=== PATIENT | female | born 1960 | race Caucasian/White ===

== ENCOUNTER 2017-09-08 09:37 | Outpatient (CLI) | payer MEDICARE, MEDICAID ==
[~2017-09-08 09:37] MED LIST: DIO160T PO; GABA300S PO; MULT-1085 PO
== END 2017-09-08 23:59 | disposition home or self-care (01) ==
LOC: LAB 09:37
PROVIDERS: ATTEND Surgery
DX: Z12.73 Encounter for screening for malignant neoplasm of ovary (principal); I10 Essential (primary) hypertension; Z80.41 Family history of malignant neoplasm of ovary
CPT/HCPCS: 36415

== ENCOUNTER 2020-05-28 11:16 | Emergency (ER) | payer MEDICARE, OTHER ==
[~2020-05-28] VITALS: Ht 170.2 cm; Wt 63.0 kg
--- NOTE | 2020-05-28 11:56 | NUR ---
pt is 59yo female c/o reaction to plaxil, started on Tuesday for anxiety, sx started Tuesday--pt c/o "feels like I want to jump out of my skin", decreased appetite, insomnia. Pt has been evaluated by Gita LAWRENCE
[2020-05-28] MEDS ORDERED: ALPRAZolam 0.25mg tablet PO ONE (12:10)
[2020-05-28 14:46] LABS: BASOPHILS % (AUTO) 0.5 % (0-1); EOSINOPHILS # (AUTO) 0.1 X10'3 (0-0.9); EOSINOPHILS % (AUTO) 0.6 % (0-6); HEMATOCRIT 45.1 % (35.0-45.0); HEMOGLOBIN 14.8 g/dl (12.0-16.0); LYMPHOCYTES # (AUTO) 1.9 X10'3 (1.1-4.8); LYMPHOCYTES % (AUTO) 18.9 % (21-51); MEAN CORPUSCULAR HEMOGLOBIN 30.1 PG (27.0-31.0); MEAN CORPUSCULAR HGB CONC 32.8 g/dL (33.0-36.5); MEAN CORPUSCULAR VOLUME 91.9 FL (78-98); MEAN PLATELET VOLUME 10.3 FL (7.4-10.4); MONOCYTES # (AUTO) 0.8 X10'3 (0-0.9); MONOCYTES % (AUTO) 8.5 % (2-12); NEUTROPHILS # (AUTO) 7.1 X10'3 (1.8-7.7); NEUTROPHILS % (AUTO) 71.5 % (42-75); PLATELET COUNT 271 X10'3 (140-440); RED BLOOD COUNT 4.91 X10'6 (4.20-5.60); RED CELL DISTRIBUTION WIDTH 14.8 % (11.5-14.5); WHITE BLOOD COUNT 9.9 X10'3 (4.5-11.0)
[2020-05-28 15:06] LABS: ALANINE AMINOTRANSFERASE 22 U/L (12-78); ALKALINE PHOSPHATASE 56 IU/L (46-116); ANION GAP 12 (8-16); ASPARTATE AMINO TRANSFERASE 18 U/L (10-37); BILIRUBIN,TOTAL 0.5 MG/DL (0.1-1.0); BLOOD UREA NITROGEN 21 MG/DL (7-18); BUN/CREATININE RATIO 25.9 (6.6-38.0); CALCIUM 9.9 MG/DL (8.5-10.1); CHLORIDE 102 MMOL/L (99-107); CREATININE 0.81 MG/DL (0.40-0.90); GLUCOSE 87 MG/DL (70-104); SODIUM 138 MMOL/L (135-145); TOTAL CARBON DIOXIDE 23.9 MMOL/L (24-32); TOTAL PROTEIN 8.2 G/DL (6.4-8.2); eGFR 72 ML/MIN
[2020-05-28 15:07] LABS: ETHANOL < 0.010 GM/DL (0.0-0.010)
[2020-05-28 15:18] LABS: URINE HCG NEGATIVE (NEG)
--- NOTE | 2020-05-28 15:23 | NUR ---
patient on bed awake.We will monitor,.
[2020-05-28 15:29] LABS: URINE AMPHETAMINE SCREEN NEGATIVE (Neg); URINE BARBITUATE SCREEN NEGATIVE (Neg); URINE BENZODIAZEPINES SCREEN POSITIVE (Neg); URINE CANNABINOID SCREEN POSITIVE (Neg); URINE COCAINE SCREEN NEGATIVE (Neg); URINE METHADONE SCREEN NEGATIVE (Neg); URINE OPIATE SCREEN POSITIVE (Neg); URINE PHENCYCLIDINE SCREEN NEGATIVE (Neg)
[2020-05-28] MEDS ORDERED: LORazepam 0.5 MG tablet PO ONE (15:35)
--- NOTE | 2020-05-28 16:08 | NUR ---
talked to pt's to give him an update on wifes care.
[2020-05-28] MEDS ORDERED: HYDR-4353 PO (16:34)
[2020-05-28] MEDS ORDERED: LOSA100T3 PO (16:34)
[2020-05-28] MEDS ORDERED: ESCI10TA PO (16:34)
[2020-05-28] MEDS ORDERED: PARO10TA85 PO (16:34)
--- NOTE | 2020-05-28 17:15 | NUR ---
PT IS RESTING IN HER ROOM. LAYING ON HER LEFT SIDE
[2020-05-28] MEDS ORDERED: LORazepam 1 MG tablet PO PRN (17:45)
--- NOTE | 2020-05-28 18:40 | NUR ---
[facility] at bedside to evaluate client.
--- NOTE | 2020-05-28 19:00 | NUR ---
Client resting in bed. No evidence of distress.
--- NOTE | 2020-05-28 20:00 | NUR ---
Client asked about medications for sleep. Awake and alert. Resp even.
[2020-05-28] MEDS ORDERED: traZODone 50mg tablet PO PRN (20:25)
[2020-05-28] MEDS ORDERED: LORazepam 1 MG tablet PO ONE (20:25)
[2020-05-28] MEDS: HYDROcodone/acetaminophen 10/325mg tab PO SCH (20:39)
--- NOTE | 2020-05-28 21:00 | NUR ---
Spoke with Dr. Amato regarding medications. 1.5 mg Ativan Tab PO and 50 mg Trazodone Tab PO ordered. Client accepted 10 mg [place] Tab PO and the Ativan. Client requested ear plugs as another client was being loud and disrupted. Client requested this individual lower their voice.
--- NOTE | 2020-05-28 22:00 | NUR ---
Client given 50 mg Trazodone Tab PO for sleep. Stated, "I haven't slept in three days." Client given Trazodone. Cooperative. Mood and affect are anxious.
--- NOTE | 2020-05-29 00:35 | NUR ---
Resting in bed, eye's closed. Resp even.
--- NOTE | 2020-05-29 02:15 | NUR ---
Resting on her back, eye's closed. Resp even.
--- NOTE | 2020-05-29 03:59 | NUR ---
Resting eye's closed. Resp even.
--- NOTE | 2020-05-29 05:52 | NUR ---
Client is awake, vital signs are being taken by ANAI Norton. Client is cooperative.
[2020-05-29 06:00] VITALS: BP_DIAS 69
--- NOTE | 2020-05-29 06:30 | NUR ---
Patient sleeping on right side. No distress observed. Continue to monitor.
[2020-05-29] MEDS ORDERED: ESCITALOPRAM OXALATE 5 MG TABLET PO SCH (08:00)
[2020-05-29] MEDS ORDERED: losartan 50mg tablet PO SCH (08:00)
[2020-05-29 08:05] VITALS: BP_SYST 108
[2020-05-29] MEDS: HYDROcodone/acetaminophen 10/325mg tab PO SCH ×2 (08:05→14:20)
--- NOTE | 2020-05-29 08:15 | NUR ---
Patient ambulatory, steady gait to BR. Patient told RN that she slept well and for the first time didn't feel palpitations in the morning. Patient is pleasant. No distress observed. Continue to monitor.
--- NOTE | 2020-05-29 10:09 | NUR ---
Patient speaking on the phone with her boyfriend. No distress observed. Continue to monitor.
--- NOTE | 2020-05-29 11:55 | NUR ---
Patient sleeping. No distress observed. Continue to monitor.
--- NOTE | 2020-05-29 13:11 | NUR ---
Patient eating lunch. No distress observed. Continue to monitor.
--- NOTE | 2020-05-29 15:10 | NUR ---
Patient got anxious because of Security and a patient yelling in another room and walking around OF. RN gave patient 1 mg Ativan, PO. Continue to monitor.
[2020-05-29 16:13] LABS: CLARITY,URINE SLIGHTLY CLOUDY (Clear); COLOR,URINE YELLOW (Yellow); GLUCOSE, URINE NEGATIVE (Neg); KETONES,URINE 15 mg/dl (Neg); LEUKOCYTE ESTERASE ,URINE SMALL (Neg); NITRITES, URINE NEGATIVE (Neg); OCCULT BLOOD,URINE NEGATIVE (Neg); PROTEIN,URINE NEGATIVE (Neg); UROBILINOGEN,URINE 0.2 E.U/dL (0.2-1.0)
[2020-05-29 16:19] LABS: UA COLLECTION TYPE CLN CATCH MIDSTREAM
[2020-05-29 16:25] LABS: BACTERIA,URINE FEW /HPF (Neg); SQUAMOUS EPITHELIAL CELL,UR MANY /LPF (FEW); WBC,URINE 20-30 /HPF (0-4)
[2020-05-29 16:26] LABS: RBC,URINE 0-2 /HPF (0-2)
--- NOTE | 2020-05-29 16:28 | NUR ---
lab called ua was rejected for cultures RN made aware
--- NOTE | 2020-05-29 16:33 | NUR ---
pt ambulated to bathroom no assistance needed.
[2020-05-30] MEDS ORDERED: OMEP-50 PO (12:47)
== END 2020-05-29 17:15 | disposition home or self-care (01) ==
LOC: ER 11:17
DX: F79 Unspecified intellectual disabilities (principal); F41.9 Anxiety disorder, unspecified; R45.851 Suicidal ideations; G47.00 Insomnia, unspecified; Z88.8 Allergy status to other drugs, medicaments and biological substances; Z79.899 Other long term (current) drug therapy
CPT/HCPCS: 36415; 80053; 80305; 80320; 81001; 81025; 84443; 85025; 99284

== ENCOUNTER 2020-05-29 15:20 | Inpatient (IN) | payer MEDICARE, OTHER ==
[~2020-05-29] VITALS: Ht 170.2 cm; Wt 63.0 kg
[~2020-05-29 15:20] MED LIST changes: -DIO160T PO; +ESCI10TA PO; -GABA300S PO; +HYDR-4353 PO; +LOSA100T3 PO; -MULT-1085 PO; +PARO10TA85 PO
[2020-05-29 17:45] VITALS: BP 113/76
[2020-05-29] MEDS ORDERED: traZODone 50mg tablet PO PRN (17:45)
[2020-05-29] MEDS ORDERED: acetaminophen 325mg tablet PO PRN ×2 (17:45)
[2020-05-29] MEDS ORDERED: loperamide 2mg capsule PO PRN (17:45)
[2020-05-29] MEDS ORDERED: magnesium hydroxide 30ml (MOM) UD suspension PO PRN (17:45)
[2020-05-29] MEDS ORDERED: LORazepam 1 MG tablet PO PRN ×2 (17:45→19:25)
[2020-05-29] MEDS ORDERED: mag hydrox/Alum hydrox/simeth 30ml oral suspension PO PRN (17:45)
--- NOTE | 2020-05-29 17:48 | NUR ---
Admission note: Pt admitted to [facility] today at 1725 on 5150 for DTS. Pt is experiencing severe anxiety and feels that she cannot keep herself safe. Pt reports "If I go home, I feel I might from anxiety and no one is able to keep me safe." Pt is unable to keep herself safe. Pt has history of Charcot Gloria Tooth disorder, depression, anxiety.
[2020-05-29 20:00] VITALS: BP 124/74
[2020-05-29] MEDS: HYDROcodone/acetaminophen 10/325mg tab PO PRN (21:04)
[2020-05-30] MEDS ORDERED: LORazepam 1 MG tablet PO ONE
--- NOTE | 2020-05-30 02:44 | NUR ---
Nursing Progress Note: Diana Haji Legal hold: 5270 Client on involuntary status for GD Report received from JUAN Begum with use of SBAR Patient decompensated at board and care; increasingly agitated with bizarre, paranoid and delusional statements. Access center assessed and brought to ED for evaluation and stabilization. Why are they here: Assessment: What happened this shift: Patient resting quietly in her room. She presents as well oriented. Patient is able to relay a recent medical history including a medicine change that left her paranoid and delusional. The patient presents as linear this evening. She denies S/I, H/I, or any hallucinations. The patient states some mild anxiety. There is some difficulty sleeping. Patient has had adverse reaction to Trazadone in the past, "It makes my legs feel like cement. Per Dr. Amato Ativan will be used as a sleep aid. Patient tells this freelance writer "I feel wonderful, the Ativan really helps with my anxiety." Patient is wearing AFP braces to provide support for her weak ankles. She has had a diagnosis of Hxspnia-Wtvap-Plars disease. Patient continues to have nerve degeneration, primarily in her lower extremities. 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 This patient is goal oriented to improve her mental health. S/I, H/I: Denies. A/VH: Denies. Sleep: Will tally in am. ADL's: WNL. Group attendance: None on detail manager. Were med's taken: Yes, medication compliant. Any med S/E: None noted. Mental Status Exam Appearance: Clean and nicely dressed. Eye contact: Good. Behavior: Kind and cooperative. Speech: Quiet speech, regular rhythm. Mood: Good. Affect: WNL. Thought process: Linear. Thought Content: Getting medication adjusted, going home. Cognition: Good, oriented to person, place, time, and situation. Insight: Fair. Judgment: Fair. Interventions PRN's used: Ativan 1 mg used once then repeated for sleep. Therapeutic interventions: Maintained a safe and therapeutic environment, provided clear and simple instructions, attempted to orient to reality, encouraged ADLs and provided positive encouragement, provided medication education, monitored/encouraged meal/fluid intake, encouraged eating in the Group Room and ambulation on the unit, and maintained Q 15min safety checks. Restraints/seclusion/emergency medication: N/A
[2020-05-30 07:57] VITALS: BP 107/64
[2020-05-30] MEDS ORDERED: losartan 50mg tablet PO SCH (08:00)
[2020-05-30] MEDS: ESCITALOPRAM OXALATE 5 MG TABLET PO SCH (08:13)
[2020-05-30 08:52] LABS: HEMOGLOBIN A1C 5.8 % (4.5-6.2)
[2020-05-30 08:55] LABS: CHOLESTEROL 261 MG/DL (0-200); HDL CHOLESTEROL 65 MG/DL (35-60); LDL CHOLESTEROL 160 MG/DL (50-100); TRIGLYCERIDES 166 MG/DL (20-135)
[2020-05-30] MEDS ORDERED: OMEP-50 PO (12:47)
--- NOTE | 2020-05-30 17:11 | NUR ---
Nursing Progress Note: Legal hold: 5150 Client on involuntary status for DTS Report received from Bia Greenwood RN with use of SBAR Why are they here: Pt had markedly increased depression, anxiety, and insomnia, with nausea after PCP abruptly changed medication from Lexapro pt had been on for years to Paxil in one day without titration, pt also given a flu shot on the same day. Pt was endorsing passive SI due to feeling like she was crawling out of her skin. Pt has Ssxmctq-Awlkr-Xmrcs Disease. Assessment: What happened this shift: Pt was up for breakfast, ate less than half of it as she is used to eating only yogurt and a banana for breakfast. Pt denied any nausea. Pt denied depression and SI. Pt stated she was feeling much better. Pt reported that before this episode she had never in her life endorsed SI. Pt stated that she wanted to get home and see her new grand baby. Pt did admit to some anxiety and requested an Ativan 1 mg at 0819 but she did not feel that her anxiety level was anything out of the ordinary for her. Pt stated that Dr Amato had discussed changing her Cozaar to a beta rica which would help with anxiety as well as her hypertension and help with the sensation that her heart is racing (which she admits she is still experiencing at times.) Pt's HR this morning was 67 BPM. Pt states that now that she is no longer working she will have medi-melina and medicare and plans on finding a new PCP as her doctor is in his 80's, probably will retire soon, and not all that familiar with psych medications. Pt plans on looking into [facility] as she is aware that they also offer mental health services. Pt requested prn Tylenol for 8/10 right shoulder pain. She stated that she did not want the PRN [place] as it doesn't work for the type of pain she has in her shoulder. Pt states she gets injections every few months for her shoulder. Administered PRN Tylenol 650 mg @ 1253. S/I, H/I: Pt denies. A/VH: Pt denies. Sleep: Pt slept 8.5 hours last night per noc shift report. ADL's: Independent, uses BLE AFOs for ambulation. Group attendance: No Were med's taken: Yes Any med S/E: None noted or reported. Mental Status Exam Appearance: Neat, clean lady with short, curly dark blond hair and glasses. Eye contact: Good Behavior: Pleasant, cooperative, appropriate Speech: Clear, audible, normal rate and rhythm. Mood: Good, "much better" Affect: Appropriate Thought process: Organized Thought Content: Feels better, is ready to go home, future oriented, looking forward to spending time with her grand babies. Cognition: A/O X 4 Insight: Good Judgment: Good Interventions PRN's used: Ativan 1 mg, Tylenol 650 mg Therapeutic interventions: 1:1 assessment, therapeutic conversation, active listening, ensured contract for safety, positive reinforcement, medication administration/education/monitoring, Q 15 minute safety checks. Restraints/seclusion/emergency medication: N/A Justification: Pt is needing medication adjustment and monitoring until stable to prevent harm to pt/readmission.
[2020-05-30 19:00] VITALS: BP 96/55
[2020-05-30] MEDS ORDERED: LORazepam 1 MG tablet PO PRN (20:30)
[2020-05-30] MEDS: HYDROcodone/acetaminophen 10/325mg tab PO PRN ×2 (20:49→20:56)
--- NOTE | 2020-05-31 03:44 | NUR ---
Nursing Progress Note: Itzel Castle Legal hold: 5150 Client on involuntary status for DTS Report received from JUAN Begum with use of SBAR Why are they here: Pt had markedly increased depression, anxiety, and insomnia, with nausea after PCP abruptly changed medication from Lexapro pt had been on for years to Paxil in one day without titration, pt also given a flu shot on the same day. Pt was endorsing passive SI due to feeling like she was crawling out of her skin. Pt has Jvkhler-Ervzc-Uichc Disease. Assessment: What happened this shift: Patient continues isolating in her room. No distress. Patient admits some depression, she denies H/I, S/I, or any hallucinations. Patient is napping often. Persistent neck and shoulder pain, bilateral leg discomfort, patient states nerve deterioration. Patient is quiet and cooperative. She is focused on mental health improvement, future finances, and discharge. S/I, H/I: Pt denies. A/VH: Pt denies. Sleep: Will tally at 0500.. ADL's: Independent, uses BLE AFOs for ambulation. Group attendance: No group on nights. Were med's taken: Yes, medication compliant. Any med S/E: None noted or reported. Mental Status Exam Appearance: Neat, clean lady with short, curly dark blond hair and glasses. Eye contact: Good Behavior: Pleasant, cooperative, appropriate. Speech: Clear, audible, normal rate and rhythm. Mood: Good, smiling at times. Affect: Appropriate. Thought process: Organized. Thought Content: Getting better, going home, finances. Cognition: A/O X 4. Insight: Good. Judgment: Good. Interventions PRN's used: Ativan 1 mg for sleep, [place] 10 for neck, shoulder, leg discomfort. Therapeutic interventions: 1:1 assessment, therapeutic conversation, active listening, ensured contract for safety, positive reinforcement, medication administration/education/monitoring, Q 15 minute safety checks. Restraints/seclusion/emergency medication: N/A Justification: Pt is needing medication adjustment and monitoring until stable to prevent harm to pt/readmission.
[2020-05-31 07:30] VITALS: BP 114/75
[2020-05-31] MEDS ORDERED: atorvastatin 20mg tablet PO SCH (08:00)
[2020-05-31] MEDS: propranolol 10mg tablet PO SCH ×2 (08:25→12:32)
[2020-05-31] MEDS: ESCITALOPRAM OXALATE 5 MG TABLET PO SCH (08:26)
[2020-05-31] MEDS ORDERED: ATI1T PO (15:46)
[2020-05-31] MEDS ORDERED: ATOR20TA66 PO (15:46)
[2020-05-31] MEDS ORDERED: PROP10TA10 PO (15:46)
[2020-05-31] MEDS ORDERED: ESCI5TAB PO (15:46)
--- NOTE | 2020-05-31 17:28 | NUR ---
Nadia Discharge note: Pt ambulated off unit for discharge at 1715 to brother at security desk. Pt accompanied by RN with all of her belongings which were inventoried by PCT with pt and personal medications returned from pharmacy. Pt improving since admission. Pt states she feels so much better now that her medication seems to be worked out. She denies any MH symptoms and states she is ready to go home. No acute psychological or emotional distress. Pt given discharge instructions per RN with RX x4 with no further questions per pt. Pt is to schedule her own follow up appointment at [facility].
[2020-06-01] MEDS ORDERED: ESCITALOPRAM OXALATE 5 MG TABLET PO SCH (08:00)
== END 2020-05-31 17:13 | disposition home or self-care (01) | DRG 885 ==
LOC: ADULT MH 17:29
PROVIDERS: ADMIT Psychiatry & Neurology Psychiatry; ATTEND Psychiatry & Neurology Psychiatry
DX: F33.1 Major depressive disorder, recurrent, moderate (principal); F41.0 Panic disorder [episodic paroxysmal anxiety]; I10 Essential (primary) hypertension; R07.9 Chest pain, unspecified; E78.00 Pure hypercholesterolemia, unspecified; F17.210 Nicotine dependence, cigarettes, uncomplicated; Z88.6 Allergy status to analgesic agent; Z88.8 Allergy status to other drugs, medicaments and biological substances; Z79.899 Other long term (current) drug therapy; Z71.6 Tobacco abuse counseling
CPT/HCPCS: 36415; 80061; 83036; 87081

== ENCOUNTER 2020-07-07 10:19 | Emergency (ER) | payer MEDICARE, MEDICAID ==
[~2020-07-07] VITALS: Ht 175.3 cm; Wt 65.0 kg
[~2020-07-07 10:19] MED LIST changes: +ATI1T PO; +ATOR20TA66 PO; -ESCI10TA PO; +ESCI5TAB PO; -LOSA100T3 PO; +OMEP-50 PO; -PARO10TA85 PO; +PROP10TA10 PO
[2020-07-07 10:49] LABS: BASOPHILS # (AUTO) 0.1 X10'3 (0-0.2); BASOPHILS % (AUTO) 0.5 % (0-1); EOSINOPHILS # (AUTO) 0.1 X10'3 (0-0.9); EOSINOPHILS % (AUTO) 0.6 % (0-6); HEMATOCRIT 47.2 % (35.0-45.0); HEMOGLOBIN 15.7 g/dl (12.0-16.0); LYMPHOCYTES # (AUTO) 1.7 X10'3 (1.1-4.8); LYMPHOCYTES % (AUTO) 13.5 % (21-51); MEAN CORPUSCULAR HEMOGLOBIN 30.2 PG (27.0-31.0); MEAN CORPUSCULAR HGB CONC 33.3 g/dL (33.0-36.5); MEAN CORPUSCULAR VOLUME 90.9 FL (78-98); MEAN PLATELET VOLUME 9.9 FL (7.4-10.4); MONOCYTES # (AUTO) 0.9 X10'3 (0-0.9); MONOCYTES % (AUTO) 7.4 % (2-12); NEUTROPHILS # (AUTO) 9.6 X10'3 (1.8-7.7); PLATELET COUNT 299 X10'3 (140-440); RED BLOOD COUNT 5.19 X10'6 (4.20-5.60); RED CELL DISTRIBUTION WIDTH 14.4 % (11.5-14.5); WHITE BLOOD COUNT 12.4 X10'3 (4.5-11.0)
[2020-07-07] MEDS ORDERED: LORazepam 2 mg/ml vial IV ONE (10:55)
[2020-07-07] MEDS ORDERED: cloNIDine 0.1 mg tablet PO ONE (10:55)
[2020-07-07 11:04] LABS: ALANINE AMINOTRANSFERASE 27 U/L (12-78); ALKALINE PHOSPHATASE 60 IU/L (46-116); ANION GAP 6 (8-16); ASPARTATE AMINO TRANSFERASE 18 U/L (10-37); BILIRUBIN,TOTAL 0.6 MG/DL (0.1-1.0); BLOOD UREA NITROGEN 27 MG/DL (7-18); CALCIUM 10.1 MG/DL (8.5-10.1); CHLORIDE 102 MMOL/L (99-107); CREATININE 0.71 MG/DL (0.40-0.90); GLUCOSE 117 MG/DL (70-104); POTASSIUM 4.9 MMOL/L (3.5-5.1); SODIUM 136 MMOL/L (135-145); TOTAL CARBON DIOXIDE 28.2 MMOL/L (24-32); TOTAL PROTEIN 8.1 G/DL (6.4-8.2); eGFR 84 ML/MIN
[2020-07-07] MEDS ORDERED: LORA-269 PO (13:21)
--- NOTE | 2020-07-07 13:51 | NUR ---
HOWARD SERRANO MADE AWARE PATIENT SPO2 71% ON ROOM AIR, PLACE ON O2 VIA NC AND TITRATED UP FROM 2L-6L TO SUSTAIN SPO2 AT 94%. PATIENT AWAKE, ALERT, STATES SHE IS NAUSEOUS, MD TO ENTER ORDERS.
[2020-07-07] MEDS ORDERED: metoclopramide 5 mg/ml inj IV ONE (13:55)
[2020-07-07] MEDS ORDERED: normal saline 1000ml 1,000 ML IV ONE (14:40)
[2020-07-07 15:17] VITALS: BP 105/59
== END 2020-07-07 15:18 | disposition home or self-care (01) ==
LOC: ER 10:19
DX: F41.0 Panic disorder [episodic paroxysmal anxiety] (principal); I10 Essential (primary) hypertension; Z88.6 Allergy status to analgesic agent; Z88.8 Allergy status to other drugs, medicaments and biological substances; Z79.899 Other long term (current) drug therapy
CPT/HCPCS: 36415; 71045; 80053; 83880; 84484; 85025; 93005; 96374; 96375; 99285; J2060; J2765; J7030

== ENCOUNTER 2020-09-08 08:44 | Emergency (ER) | payer MEDICARE, MEDICAID ==
[~2020-09-08] VITALS: Ht 170.2 cm; Wt 65.0 kg
[~2020-09-08 08:44] MED LIST changes: +LORA-269 PO
[2020-09-08] MEDS ORDERED: fentaNYL/PF 50MCG/1 ML 2ML syringe IV ONE (09:25)
[2020-09-08] MEDS ORDERED: normal saline 1000ML IV soln IV ONE (09:25)
[2020-09-08] MEDS ORDERED: ondansetron/PF 4mg/2ml inj IV ONE (09:25)
[2020-09-08 10:38] LABS: BASOPHILS # (AUTO) 0.1 X10'3 (0-0.2); BASOPHILS % (AUTO) 0.9 % (0-1); EOSINOPHILS # (AUTO) 0.1 X10'3 (0-0.9); EOSINOPHILS % (AUTO) 1.4 % (0-6); HEMATOCRIT 41.3 % (35.0-45.0); HEMOGLOBIN 13.9 g/dl (12.0-16.0); LYMPHOCYTES # (AUTO) 1.9 X10'3 (1.1-4.8); LYMPHOCYTES % (AUTO) 21.1 % (21-51); MEAN CORPUSCULAR HEMOGLOBIN 30.4 PG (27.0-31.0); MEAN CORPUSCULAR HGB CONC 33.6 g/dL (33.0-36.5); MEAN CORPUSCULAR VOLUME 90.6 FL (78-98); MEAN PLATELET VOLUME 9.8 FL (7.4-10.4); MONOCYTES # (AUTO) 0.9 X10'3 (0-0.9); MONOCYTES % (AUTO) 10.3 % (2-12); NEUTROPHILS # (AUTO) 5.9 X10'3 (1.8-7.7); NEUTROPHILS % (AUTO) 66.3 % (42-75); PLATELET COUNT 284 X10'3 (140-440); RED BLOOD COUNT 4.56 X10'6 (4.20-5.60); RED CELL DISTRIBUTION WIDTH 14.3 % (11.5-14.5); WHITE BLOOD COUNT 8.9 X10'3 (4.5-11.0)
[2020-09-08 10:53] LABS: ALANINE AMINOTRANSFERASE 24 U/L (12-78); ALBUMIN 3.7 G/DL (3.4-5.0); ALBUMIN/GLOBULIN RATIO 1.1 (1.1-1.5); ALKALINE PHOSPHATASE 60 IU/L (46-116); ANION GAP 9 (8-16); ASPARTATE AMINO TRANSFERASE 23 U/L (10-37); BILIRUBIN,TOTAL 0.6 MG/DL (0.1-1.0); BLOOD UREA NITROGEN 13 MG/DL (7-18); BUN/CREATININE RATIO 14.9 (6.6-38.0); CALCIUM 9.8 MG/DL (8.5-10.1); CHLORIDE 102 MMOL/L (99-107); CREATININE 0.87 MG/DL (0.40-0.90); GLUCOSE 90 MG/DL (70-104); LIPASE 151 U/L (73-393); MAGNESIUM 2.1 MG/DL (1.5-2.4); POTASSIUM 3.5 MMOL/L (3.5-5.1); SODIUM 141 MMOL/L (135-145); TOTAL CARBON DIOXIDE 29.6 MMOL/L (24-32); TOTAL PROTEIN 7.2 G/DL (6.4-8.2); eGFR 66 ML/MIN
[2020-09-08 11:16] LABS: URINE HCG NEGATIVE (NEG)
[2020-09-08 11:21] LABS: CLARITY,URINE CLEAR (Clear); COLOR,URINE YELLOW (Yellow); GLUCOSE, URINE NEGATIVE (Neg); KETONES,URINE 15 mg/dl (Neg); LEUKOCYTE ESTERASE ,URINE NEGATIVE (Neg); NITRITES, URINE NEGATIVE (Neg); OCCULT BLOOD,URINE NEGATIVE (Neg); PROTEIN,URINE NEGATIVE (Neg); UROBILINOGEN,URINE 0.2 E.U/dL (0.2-1.0)
[2020-09-08 11:23] LABS: UA COLLECTION TYPE OTHER
[2020-09-08 12:07] VITALS: BP 153/93
== END 2020-09-08 12:36 | disposition home or self-care (01) ==
LOC: ER 08:45
DX: R11.2 Nausea with vomiting, unspecified (principal); Z20.828 Contact with and (suspected) exposure to other viral communicable diseases; E86.0 Dehydration; R10.84 Generalized abdominal pain; Z88.8 Allergy status to other drugs, medicaments and biological substances; Z79.899 Other long term (current) drug therapy
CPT/HCPCS: 36415; 71045; 74176; 80053; 81003; 81025; 83605; 83690; 83735; 84145; 85025; 87635; 96361; 96374; 96375; 99285; J2405; J3010; J7030

== ENCOUNTER 2020-12-31 10:37 | Emergency (ER) | payer MEDICARE, MEDICAID ==
[~2020-12-31] VITALS: Ht 170.2 cm; Wt 59.1 kg
[2020-12-31] MEDS ORDERED: LORazepam 1 MG tablet PO ONE (12:05)
[2020-12-31] MEDS ORDERED: normal saline 1000ML IV soln IVB ONE (12:15)
[2020-12-31 12:26] LABS: BASOPHILS % (AUTO) 0.3 % (0-1); EOSINOPHILS # (AUTO) 0.1 X10'3 (0-0.9); EOSINOPHILS % (AUTO) 0.5 % (0-6); HEMATOCRIT 45.1 % (35.0-45.0); HEMOGLOBIN 14.8 g/dl (12.0-16.0); LYMPHOCYTES # (AUTO) 1.7 X10'3 (1.1-4.8); MEAN CORPUSCULAR HEMOGLOBIN 29.8 PG (27.0-31.0); MEAN CORPUSCULAR HGB CONC 32.8 g/dL (33.0-36.5); MEAN CORPUSCULAR VOLUME 90.7 FL (78-98); MEAN PLATELET VOLUME 9.5 FL (7.4-10.4); MONOCYTES % (AUTO) 8.4 % (2-12); NEUTROPHILS # (AUTO) 8.7 X10'3 (1.8-7.7); NEUTROPHILS % (AUTO) 75.8 % (42-75); PLATELET COUNT 293 X10'3 (140-440); RED BLOOD COUNT 4.97 X10'6 (4.20-5.60); RED CELL DISTRIBUTION WIDTH 14.9 % (11.5-14.5); WHITE BLOOD COUNT 11.5 X10'3 (4.5-11.0)
[2020-12-31] MEDS ORDERED: ondansetron 4mg rapidly disintigrating tab PO ONE (12:30)
[2020-12-31 12:40] LABS: ALANINE AMINOTRANSFERASE 18 U/L (12-78); ALKALINE PHOSPHATASE 79 IU/L (46-116); ANION GAP 9 (8-16); ASPARTATE AMINO TRANSFERASE 18 U/L (10-37); BILIRUBIN,TOTAL 0.3 MG/DL (0.1-1.0); BLOOD UREA NITROGEN 13 MG/DL (7-18); BUN/CREATININE RATIO 19.4 (6.6-38.0); CALCIUM 10.2 MG/DL (8.5-10.1); CHLORIDE 105 MMOL/L (99-107); CREATININE 0.67 MG/DL (0.40-0.90); GLUCOSE 126 MG/DL (70-104); POTASSIUM 4.4 MMOL/L (3.5-5.1); SODIUM 142 MMOL/L (135-145); TOTAL CARBON DIOXIDE 28.3 MMOL/L (24-32); TOTAL PROTEIN 7.9 G/DL (6.4-8.2); eGFR 89 ML/MIN
[2020-12-31] MEDS ORDERED: LORA-269 PO ×2 (14:39→14:42)
[2020-12-31 15:03] VITALS: BP 145/94
== END 2020-12-31 15:06 | disposition home or self-care (01) ==
LOC: ER 10:37
DX: F41.9 Anxiety disorder, unspecified (principal); R06.02 Shortness of breath; Z98.890 Other specified postprocedural states; Z88.8 Allergy status to other drugs, medicaments and biological substances; Z79.899 Other long term (current) drug therapy
CPT/HCPCS: 36415; 80053; 85025; 96360; 96361; 99283; J7030

== ENCOUNTER 2024-03-30 11:00 | Emergency (ER) | payer MEDICARE, MEDICAID ==
[~2024-03-30] VITALS: Ht 170.2 cm; Wt 55.4 kg
[~2024-03-30 11:00] MED LIST changes: -OMEP-50 PO; +OMEP20CA16 PO
[2024-03-30 11:27] VITALS: TEMP 98.7
[2024-03-30 12:12] LABS: BILIRUBIN,URINE NEGATIVE (Neg); CLARITY,URINE CLEAR (Clear); COLOR,URINE YELLOW (Yellow); GLUCOSE, URINE NEGATIVE (Neg); KETONES,URINE 15 mg/dl (Neg); LEUKOCYTE ESTERASE ,URINE NEGATIVE (Neg); NITRITES, URINE NEGATIVE (Neg); OCCULT BLOOD,URINE NEGATIVE (Neg); PROTEIN,URINE TRACE mg/dl (Neg); UROBILINOGEN,URINE 0.2 E.U/dL (0.2-1.0)
[2024-03-30 12:18] LABS: UA COLLECTION TYPE NON-SPECIFIED
[2024-03-30 12:20] LABS: WBC,URINE 0-4 /HPF (0-4)
[2024-03-30 12:20] LABS: BASOPHILS % (AUTO) 0.3 % (0-1); EOSINOPHILS # (AUTO) 0.1 X10'3 (0-0.9); EOSINOPHILS % (AUTO) 0.5 % (0-6); HEMATOCRIT 39.7 % (35.0-45.0); HEMOGLOBIN 13.2 g/dl (12.0-16.0); LYMPHOCYTES # (AUTO) 1.2 X10'3 (1.1-4.8); LYMPHOCYTES % (AUTO) 11.5 % (21-51); MEAN CORPUSCULAR HEMOGLOBIN 29.3 PG (27.0-31.0); MEAN CORPUSCULAR HGB CONC 33.3 g/dL (33.0-36.5); MEAN PLATELET VOLUME 10.2 FL (7.4-10.4); MONOCYTES # (AUTO) 1.1 X10'3 (0-0.9); MONOCYTES % (AUTO) 10.7 % (2-12); NEUTROPHILS # (AUTO) 7.9 X10'3 (1.8-7.7); PLATELET COUNT 233 X10'3 (140-440); RED BLOOD COUNT 4.51 X10'6 (4.20-5.60); RED CELL DISTRIBUTION WIDTH 15.1 % (11.5-14.5); WHITE BLOOD COUNT 10.2 X10'3 (4.5-11.0)
[2024-03-30 12:21] LABS: BACTERIA,URINE FEW /HPF (Neg); HYALINE CASTS 0-3 /LPF (NEGATIVE); MUCUS STRANDS MANY /LPF (Neg); SQUAMOUS EPITHELIAL CELL,UR MANY /LPF (FEW)
[2024-03-30 12:22] LABS: COARSE GRANULAR CAST 0-3 /LPF (NEGATIVE)
[2024-03-30 12:33] LABS: ALANINE AMINOTRANSFERASE 19 U/L (12-78); ALBUMIN 3.1 G/DL (3.4-5.0); ALBUMIN/GLOBULIN RATIO 1.1 (1.1-1.5); ALKALINE PHOSPHATASE 52 IU/L (46-116); ANION GAP 7 (8-16); ASPARTATE AMINO TRANSFERASE 14 U/L (10-37); BILIRUBIN,TOTAL 0.5 MG/DL (0.1-1.0); BLOOD UREA NITROGEN 14 MG/DL (7-18); CALCIUM 8.8 MG/DL (8.5-10.1); CHLORIDE 108 MMOL/L (99-107); CREATININE 0.61 MG/DL (0.40-0.90); GLUCOSE 133 MG/DL (70-104); LIPASE 66 U/L (16-77); POTASSIUM 3.6 MMOL/L (3.5-5.1); SODIUM 141 MMOL/L (135-145); eCRCL 81 ML/MIN; eGFR > 90 ML/MIN
[2024-03-30] MEDS: dextrose 5%-1/2 normal saline 1,000 ML IV ONE (14:19)
[2024-03-30] MEDS: LORazepam 2 mg/ml vial IV ONE (17:31)
[2024-03-30] MEDS ORDERED: MIRT-138 PO (17:54)
[2024-03-30 18:04] VITALS: BP 143/84; PULSE 78; RESP 16; O2SAT 97
== END 2024-03-30 18:33 | disposition home or self-care (01) ==
LOC: ER 11:01
DX: F32.9 Major depressive disorder, single episode, unspecified (principal); F41.9 Anxiety disorder, unspecified; Z79.899 Other long term (current) drug therapy; Z88.8 Allergy status to other drugs, medicaments and biological substances
CPT/HCPCS: 36415; 80053; 81001; 83690; 85025; 96361; 96374; 99285; J2060

== ENCOUNTER 2025-08-18 12:38 | Emergency (ER) | payer MEDICARE, OTHER ==
[~2025-08-18] VITALS: Ht 170.2 cm; Wt 61.0 kg
[~2025-08-18 12:38] MED LIST changes: +MIRT-138 PO
[2025-08-18 12:43] VITALS: TEMP 97.9
--- NOTE | 2025-08-18 13:48 | Physician Documentation ---
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 Most recently seen by ADY Samuel. Reports no change in medications and no other illness or injuries. Medication Reconciliation Allergies: Coded Allergies: aspirin (Unverified Allergy, Unknown, N/V, 03/30/24) gabapentin (Verified Allergy, Unknown, 08/18/25) NV trazodone (Verified Adverse Reaction, Unknown, 05/29/20) Causes legs to feel like cement. Scheduled Atorvastatin Calcium (Atorvastatin Calcium), 40 MG PO DAILY Escitalopram Oxalate* (Lexapro*), 15 MG PO DAILY Hydrocodone Bit/Acetaminophen ([place] 10-325 Tablet), 1 TAB PO TID PRN, (Reported) Lorazepam (Ativan), 1 TAB PO Q12H Mirtazapine (Remeron), 1 TAB PO HS Omeprazole (Omeprazole), 1 CAP PO DAILY, (Reported) Propranolol Hcl* (Inderal*), 20 MG PO TID Scheduled PRN Lorazepam (Ativan), 1 MG PO BID PRN for anxiety Lorazepam (Ativan), 1 TAB PO Q8H PRN for for anxiety/agitation Past Medical History Past Medical History: *EMPLOYEE TRAINING SPECIALIST*, Anxiety Past Surgical History: noncontributory, orthopedic surgeries Alcohol Use: None Drug Use: none Lives with: Spouse Lives In: Home Review of Systems All Other Systems at this time: Reviewed and Negative Constitutional: Denies: fever, chills GI: Reports: nausea Musculoskeletal Generalized musculoskeletal pain Physical Exam Physical Exam Vital Signs: RN Vital Signs have been reviewed: Yes, Temperature: 97.9, Source: Oral, Heart Rate: 77, Respiratory Rate: 16, BP: 152/78, Pulse Oximetry: 96, Weight: 61.000 Oxygen Flow Rate: 0 General Appearance: alert, WD/WN, moderate distress Head: normal inspection Face: normal inspection Pupils/EOM/Fundus: PERRLA Respiratory: lungs clear Chest: no accessory muscle use Gastrointestinal: non-tender Back: normal inspection Extremities Generalized myalgias Neurologic: oriented x4 Motor / Sensory: no motor deficit, no sensory deficit Psychiatric: normal mood/affect, anxiety Skin: normal color, warm/dry Progress Results/Orders Results/Orders Completed Orders - WES REYES PAC BMP (08/18/25 13:44) Cbc/Diff (08/18/25 13:44) Metoclopramide Inj (Reglan Inj) (08/18/25 13:45) Diphenhydramine Inj (Benadryl Inj.) (08/18/25 13:45) Hydromorphone 1 Mg/Ml/Pf (Dilaudid Inj.) (08/18/25 13:45) Medications Received in ER Medications (Trade) Dose Ordered Sig/Luly Route PRN Reason Start Time Stop Time Status Last Admin Dose Admin (Reglan inj) 10 mg ONCE ONCE IV 08/18/25 13:45 08/18/25 13:52 DC 08/18/25 13:59 10 MG (Benadryl inj.) 50 mg ONCE ONCE IV 08/18/25 13:45 08/18/25 13:52 DC 08/18/25 13:58 50 MG (Dilaudid inj.) 1 mg ONCE ONCE IV 08/18/25 13:45 08/18/25 13:52 DC 08/18/25 14:01 1 MG Vital Signs 08/18/25 08/18/25 08/18/25 08/18/25 12:43 13:01 13:02 14:01 Temp 97.9 Pulse 74 77 Resp 16 16 16 15 B/P (MAP) 133/83 152/78 (102) Pulse Ox 98 96 O2 Flow Rate 0 08/18/25 14:47 Pulse 73 Resp 15 B/P (MAP) 120/57 (78) Pulse Ox 94 Laboratory Tests Test 08/18/25 13:58 White Blood Count 6.7 Red Blood Count 3.97 L Hemoglobin 11.9 L Hematocrit 34.8 L Mean Corpuscular Volume 87.7 Mean Corpuscular Hemoglobin 29.9 Mean Corpuscular Hemoglobin Concent 34.1 Red Cell Distribution Width 13.6 Platelet Count 229 Mean Platelet Volume 9.2 Neutrophils (%) (Auto) 64.3 Lymphocytes (%) (Auto) 25.6 Monocytes (%) (Auto) 8.8 Eosinophils (%) (Auto) 0.8 Basophils (%) (Auto) 0.5 Neutrophils # (Auto) 4.3 Lymphocytes # (Auto) 1.7 Monocytes # (Auto) 0.6 Eosinophils # (Auto) 0.1 Basophils # (Auto) 0.0 CBC Comment Sodium Level 140 Potassium Level 4.4 Chloride Level 103 Carbon Dioxide Level 27.5 Anion Gap 10 Blood Urea Nitrogen 17 Creatinine 1.01 H Estimated GFR/1.73 m2 55 BUN/Creatinine Ratio 16.8 Glucose Level 94 Calcium Level 9.1 Albumin 3.5 Chemistry Comments Medical Decision Making Additional information obtaine: old records Findings 65-year-old female with CMT having a musculoskeletal flare without obvious neurological deficit. We will provide anxiolytic and pain management in the form of Dilaudid, Benadryl and Reglan. Labs obtained and no obvious electrolyte derangement noted. Patient received serial re-evaluations. Received IV hydrat ion without nausea or vomiting. Safely discharged with the emergency department to continue with the current primary care physician's care plan. Differential Diagnosis Differentials include but not limited to: Electrolyte derangement, Acute neurological/vascular occulsions, Neuromuscular failure. Infectious or autoimmune etiologies. Departure Disposition: HOME / SELF CARE / HOMELESS Impression: Primary Impression: CMT (Iaciryj-Qmypf-Impmv disease) Condition: Improved Additional Instructions: Today in the emergency department you received medications to mitigate your pain and nausea and vomiting. Please follow up with your primary care physician and to return if symptoms re-presented. Thank you for visiting [facility]. Referrals: NO PRIMARY CARE PROVIDER (PCP) Education Educated: Patient Educated regarding: diagnosis, treatment, prognosis, need for follow up Signature Scribe Signature: . Attestation: . WES REYES PAC Aug 18, 2025 13:48
[2025-08-18] MEDS: metoclopramide 5 mg/ml inj IV ONE (13:59)
[2025-08-18 14:07] LABS: MEAN PLATELET VOLUME 9.2 FL (7.4-10.4); RED CELL DISTRIBUTION WIDTH 13.6 % (11.5-14.5)
[2025-08-18 14:17] LABS: CREATININE 1.01 MG/DL (0.40-0.90); TOTAL CARBON DIOXIDE 27.5 MMOL/L (24-32); eCRCL 53 ML/MIN; eGFR 55 ML/MIN
[2025-08-18] MEDS: ondansetron/PF 4mg/2ml inj IV ONE (16:36)
[2025-08-18] MEDS: normal saline 500ml IV soln 500 ML IV SCH (16:37)
[2025-08-18 17:01] VITALS: BP 131/66; PULSE 75; RESP 15; O2SAT 96
== END 2025-08-18 17:04 | disposition home or self-care (01) ==
LOC: ER 12:39
DX: G60.0 Hereditary motor and sensory neuropathy (principal); F41.9 Anxiety disorder, unspecified; Z88.6 Allergy status to analgesic agent; Z88.8 Allergy status to other drugs, medicaments and biological substances; Z79.899 Other long term (current) drug therapy; Z98.890 Other specified postprocedural states
CPT/HCPCS: 36415; 80048; 85025; 96374; 96375; 99284; J1171; J1200; J2405; J2765; J7040